=== PATIENT | male | born 1995 | race Caucasian/White ===

== ENCOUNTER 2018-11-26 17:00 | Emergency (ER) | payer OTHER ==
[~2018-11-26] VITALS: Ht 182.9 cm; Wt 99.0 kg
[2018-11-26] MEDS ORDERED: NAPR250T4 PO (17:06)
[2018-11-26] MEDS ORDERED: LIDOCAINE 2% MDV 20 ML VIAL SC ONE (20:15)
--- NOTE | 2018-11-26 20:54 | REPVR ---
PROCEDURE INFORMATION: Exam: CT Head Without Contrast Exam date and time: 11/26/2018 8:25 PM Clinical history: 23 years old, male; Alteration of consciousness; Syncope and collapse; Additional info: Possible loss of consiousness TECHNIQUE: Imaging protocol: Computed tomography of the head without contrast. Radiation optimization: All CT scans at this facility use at least one of these dose optimization techniques: automated exposure control; mA and/or kV adjustment per patient size (includes targeted exams where dose is matched to clinical indication); or iterative reconstruction. COMPARISON: No relevant prior studies available. FINDINGS: Brain: Normal. No hemorrhage. Unremarkable white matter. No mass effect. Ventricles: Normal. No ventriculomegaly. Bones/joints: Unremarkable. No acute fracture. Sinuses: Visualized sinuses are unremarkable. No fluid levels. Mastoid air cells: Visualized mastoid air cells are well aerated. Soft tissues: Small laceration in the left facial soft tissues. IMPRESSION: 1. Small left facial soft tissue laceration. 2. No acute intracranial abnormality. Electronically signed by: Adrien Andersen On 11/26/2018 20:54:20 PM
[2018-11-26] MEDS ORDERED: KEFL500C17 PO (21:22)
[2018-11-26] MEDS ORDERED: CEPHALEXIN 500 MG CAP PO ONE (21:30)
[2018-11-26 21:59] VITALS: BP 130/80
== END 2018-11-26 21:45 | disposition home or self-care (01) ==
LOC: M ED 17:00
DX: S01.81XA Laceration without foreign body of other part of head, initial encounter (principal); X58.XXXA Exposure to other specified factors, initial encounter; Y92.89 Other specified places as the place of occurrence of the external cause

== ENCOUNTER → 2022-10-26 | Outpatient (REF) ==
[~2022-10-26] MED LIST: KEFL500C17 PO; NAPR-849 PO
== END ==
LOC: M PLAIMG 08:53
PROVIDERS: ATTEND Internal Medicine
DX: R06.02 Shortness of breath (principal)

== ENCOUNTER → 2023-04-21 | Outpatient (REF) | LOC: M PLARAD 08:47 | PROVIDERS: ATTEND Internal Medicine | DX: R06.02 Shortness of breath (principal) ==